=== PATIENT | female | born 1945 | race Caucasian/White ===

== ENCOUNTER → 2018-03-29 | Outpatient (CLI) | payer MEDICARE | END | disposition home or self-care (01) | LOC: KCIC US 11:53 | DX: L03.115 Cellulitis of right lower limb (principal) | CPT/HCPCS: 93971 ==

== ENCOUNTER → 2019-10-23 | Outpatient (CLI) | payer MEDICARE ==
--- NOTE | 2019-10-23 10:34 | KCIC ---
INDICATION: Osteoporosis screening. Postmenopausal screening COMPARISON: None. TECHNIQUE: Bone densitometry was performed through the lumbar spine and bilateral proximal femur. FINDINGS: Lumbar Spine: BMD: 1.2 T-Score: 0.7 Scoliotic curvature of the spine with degenerative changes. Femoral : BMD: 0.76 T-Score: -1.5 IMPRESSION: 1. Lumbar spine falls within the normal range. 2. Femoral neck falls within the osteopenic range. * Electronically signed by: Damian Reyes MD (10/23/2019 10:31 AM) [facility] [place]
== END ==
LOC: KCIC DEXA 09:52
PROVIDERS: ATTEND Family Medicine
DX: M85.859 Other specified disorders of bone density and structure, unspecified thigh (principal); M41.86 Other forms of scoliosis, lumbar region; M47.816 Spondylosis without myelopathy or radiculopathy, lumbar region
CPT/HCPCS: 77080

== ENCOUNTER → 2020-02-05 | Outpatient (CLI) | payer MEDICARE ==
--- NOTE | 2020-02-05 12:58 | RAD ---
EXAMINATION: VENOUS LOWER EXTREMITY LEFT HISTORY: Left calf swelling COMPARISON/CORRELATION: None FINDINGS: Left lower extremity duplex venous ultrasound exam was performed. Grayscale, color Doppler, and spectral Doppler imaging was performed. Compression and augmentation was performed. The left common femoral vein, superficial femoral vein, popliteal vein, and saphenofemoral junction are normal with no evidence of deep venous thrombus. Visualized left calf veins are unremarkable. Normal compressibility and augmentation is evident. IMPRESSION: Normal left lower extremity duplex ultrasound exam. No evidence of deep venous thrombus involving the left lower extremity. Electronically signed by: Jayjay Alcantara MD (02/05/2020 12:55 PM) [id number]
== END | disposition home or self-care (01) ==
LOC: US 12:09
PROVIDERS: ATTEND Family Medicine
DX: M79.89 Other specified soft tissue disorders (principal); I82.4Z2 Acute embolism and thrombosis of unspecified deep veins of left distal lower extremity
CPT/HCPCS: 93971